=== PATIENT | male | born 1975 | race African-American/Black ===

== ENCOUNTER 2017-05-01 11:48 | Emergency (ER) | payer BC ==
[~2017-05-01] VITALS: Ht 175.3 cm; Wt 81.6 kg
--- NOTE | 2017-05-01 12:28 | NUR ---
EKG DONE ORDERED BY .
--- NOTE | 2017-05-01 12:50 | NUR ---
PT IS SEEN AND EXAMINED BY MD. CHIEF C/O OF COUGHING WITH SOB AND CHEST COUGHS X 2 DAYS. AWAKE AND ORIENTEDX3. NO APPARENT RESPIRATORY DISTRESS NOTED AT THIS TIME. O2 SAT 100%
[2017-05-01] MEDS ORDERED: ALBUTEROL SULFATE 2.5 MG/ 0.5 ML NEBU NEB ONE (13:00)
[2017-05-01 13:20] LABS: CREATININE 1.2 mg/dL (0.6-1.3); POTASSIUM 4.3 mmol/L (3.5-5.1)
[2017-05-01] MEDS ORDERED: ALBUTEROL SULFATE 2.5 MG/ 0.5 ML NEBU ONE (13:26)
--- NOTE | 2017-05-01 13:47 | NUR ---
Patient discharged to home in stable conditon. Written and verbal after care instructions given. Patient verbalizes understanding of instructions.
== END 2017-05-01 13:49 | disposition home or self-care (01) ==
LOC: ER 11:50
DX: J06.9 Acute upper respiratory infection, unspecified (principal); E78.5 Hyperlipidemia, unspecified; Z88.1 Allergy status to other antibiotic agents
CPT/HCPCS: 36415; 71045; 93005; A4663

== ENCOUNTER 2017-05-04 23:58 | Emergency (ER) | payer BC ==
[~2017-05-04] VITALS: Ht 175.3 cm; Wt 81.6 kg
[2017-05-05] MEDS ORDERED: ANDROGEL 1.62% (00:12)
[2017-05-05] MEDS ORDERED: AZITHROMYCIN 250 MG TABLET (00:12)
[2017-05-05] MEDS ORDERED: PUMP (00:12)
[2017-05-05] MEDS ORDERED: LIVALO 1 MG (00:12)
[2017-05-05] MEDS ORDERED: predniSONE 10 MG TABLET PO ONE (01:00)
[2017-05-05] MEDS ORDERED: IPRATROPIUM BROMIDE 0.5 MG/2.5 ML NEBU NEB ONE (01:00)
[2017-05-05] MEDS ORDERED: ALBUTEROL SULFATE 2.5 MG/3 ML NEBU NEB ONE (01:00)
[2017-05-05] MEDS ORDERED: predniSONE 50 MG TABLET ONE (01:57)
[2017-05-05] MEDS ORDERED: predniSONE 10 MG TABLET ONE (01:57)
[2017-05-05] MEDS ORDERED: ALBUTEROL SULFATE 2.5 MG/3 ML NEBU ONE (02:01)
[2017-05-05] MEDS ORDERED: IPRATROPIUM BROMIDE 0.5 MG/2.5 ML NEBU ONE (02:02)
--- NOTE | 2017-05-05 03:00 | NUR ---
Patient discharged to home in stable conditon, in no respiratory distress. respirations even and unlabored. Written and verbal after care instructions given with rx and work note. Patient verbalizes understanding of instructions.
== END 2017-05-05 03:15 | disposition home or self-care (01) ==
LOC: ER 23:59
DX: J45.909 Unspecified asthma, uncomplicated (principal); E78.5 Hyperlipidemia, unspecified; Z88.1 Allergy status to other antibiotic agents
CPT/HCPCS: A4663; J3590; J7512

== ENCOUNTER 2017-06-30 22:49 | Emergency (ER) | payer BC ==
[~2017-06-30] VITALS: Ht 175.3 cm; Wt 81.6 kg
[~2017-06-30 22:49] MED LIST: ANDROGEL 1.62%; AZITHROMYCIN 250 MG TABLET; LIVALO 1 MG; PUMP
[2017-07-01] MEDS ORDERED: PENICILLIN G BENZATHINE 2.4 MMU/4 ML DISP.SYRIN IM ONE ×2 (00:10)
[2017-07-01 00:27] VITALS: BP 138/85
== END 2017-07-01 00:27 | disposition home or self-care (01) ==
LOC: ER 22:50
DX: A51.49 Other secondary syphilitic conditions (principal); E78.5 Hyperlipidemia, unspecified; Z88.1 Allergy status to other antibiotic agents; Z79.2 Long term (current) use of antibiotics; Z79.899 Other long term (current) drug therapy
CPT/HCPCS: A4663

== ENCOUNTER 2018-01-14 10:08 | Emergency (ER) | payer BC ==
[~2018-01-14] VITALS: Ht 175.3 cm; Wt 81.6 kg
--- NOTE | 2018-01-14 10:12 | NUR ---
Patient came to room ambulating with steady gait. Well groamed and clean. Complains of abdominal pain.
[2018-01-14] MEDS ORDERED: IV NORMAL SALINE 1000 ML BAG IV ONE (10:30)
[2018-01-14 10:31] LABS: BASOPHILS % (AUTO) 0.5 % (0.0-2.0); EOSINOPHILS # (AUTO) 0.1 K/uL (0.0-0.7); EOSINOPHILS % (AUTO) 1.3 % (0.0-7.0); HEMATOCRIT 41.8 % (36.7-47.1); HEMOGLOBIN 13.9 g/dL (12.5-16.3); LYMPHOCYTES # (AUTO) 1.5 K/uL (20.0-40.0); LYMPHOCYTES % (AUTO) 17.4 % (20.5-51.5); MEAN CORPUSCULAR HEMOGLOBIN 28.3 uug (23.8-33.4); MEAN CORPUSCULAR HGB CONC 33 g/dL (32.5-36.3); MONOCYTES # (AUTO) 0.9 K/uL (2.0-10.0); MONOCYTES % (AUTO) 10.3 % (0.0-11.0); NEUTROPHILS # (AUTO) 6.1 K/uL (1.8-8.9); NEUTROPHILS % (AUTO) 70.5 % (38.5-71.5); PLATELET COUNT (AUTO) 194 K/uL (152-348); RED BLOOD CELL COUNT(AUTO) 4.91 MIL/uL (4.06-5.63); WHITE BLOOD COUNT (AUTO) 8.6 K/uL (3.6-10.2)
--- NOTE | 2018-01-14 10:32 | NUR ---
Patient sent to CT on wheelchair.
[2018-01-14 10:35] LABS: POTASSIUM 3.9 mmol/L (3.5-5.1)
[2018-01-14 10:41] LABS: BILIRUBIN,DIRECT 0.1 mg/dL (0.0-0.2); BILIRUBIN,TOTAL 0.7 mg/dL (0.2-1.0); TOTAL PROTEIN, SERUM 7.7 g/dL (6.4-8.2)
--- NOTE | 2018-01-14 10:46 | NUR ---
Patient returned from CT on wheelchair. No sign of respiratory distress.
--- NOTE | 2018-01-14 11:12 | NUR ---
Lab and CT results reviewed.
[2018-01-14] MEDS ORDERED: PIPERACILLIN SODIUM/TAZOBACTAM 3.375 G in IV DEXTROSE 5% 50 ML IV ONE (11:15)
[2018-01-14] MEDS ORDERED: ONDANSETRON 4 MG/2 ML VIAL IV ONE (11:15)
[2018-01-14] MEDS ORDERED: MORPHINE SULFATE 2 MG/1 ML DISP.SYRIN IV ONE (11:15)
[2018-01-14] MEDS ORDERED: MORPHINE SULFATE 4 MG/1 ML DISP.SYRIN ONE (11:17)
[2018-01-14] MEDS ORDERED: ONDANSETRON 4 MG/2 ML VIAL ONE (11:17)
[2018-01-14] MEDS ORDERED: PIPERACILLIN SODIUM/TAZO 3.375 GM VIAL ONE (11:18)
[2018-01-14] MEDS ORDERED: PIPERACILLIN/TAZOBACTAM/D5W 50 ML IV ONE (11:20)
--- NOTE | 2018-01-14 11:35 | NUR ---
patient lying in bed with no sign of respiratory distress. Medicated for complaint of pain 09/06 with morphine.
[2018-01-14 12:14] VITALS: BP 125/86
--- NOTE | 2018-01-14 12:15 | NUR ---
Patient discharged ambulating with stable gait. Patient says he will be picked up by [employer]. Patient given printed after care material, verbalizes understanding. Patient given prescription for Levaquin, Flagyl and [place] PO meds. IV removed with intact tips. Patient in stable condtion.
[2018-01-14 14:18] LABS: *BILIRUBIN,URIN NEGATIVE (NEGATIVE); *BLOOD, URINE NEGATIVE (NEGATIVE); *CLARITY,URINE CLEAR (CLEAR); *COLOR,URINE YELLOW (YELLOW); *KETONES,URINE NEGATIVE (NEGATIVE); *PROTEIN,URINE NEGATIVE (NEGATIVE); *UROBILINOGEN,URINE 0.2 E.U./dl (NORMAL); LEUKOCYTE ESTERASE ,URINE NEGATIVE (NEGATIVE); NITRITE, URINE NEGATIVE (NEGATIVE); PH,URINE 5.5 (5.0-8.0); UGLUCOSE NEGATIVE (NEGATIVE)
[2018-01-14 14:23] LABS: MUCUS,URINE MANY /LPF (0-FEW); SQUAMOUS EPITHELIAL CELL,UR FEW /HPF (NONE SEEN); WBC,URINE 0-3 /HPF (0-3)
== END 2018-01-14 12:19 | disposition home or self-care (01) ==
LOC: ER 10:08
DX: K57.92 Diverticulitis of intestine, part unspecified, without perforation or abscess without bleeding (principal); E78.5 Hyperlipidemia, unspecified; Z88.1 Allergy status to other antibiotic agents
CPT/HCPCS: 36415; 74176; 80048; 80076; 81001; 83690; 85025; 96365; 96375; 99285; A4663; J2270; J2405; J2543; J7030

== ENCOUNTER 2018-06-11 12:22 | Emergency (ER) | payer BC ==
[~2018-06-11] VITALS: Ht 175.3 cm; Wt 83.9 kg
--- NOTE | 2018-06-11 12:45 | NUR ---
HARRIET GOINS AT BEDSIDE FOR MSE.
--- NOTE | 2018-06-11 12:59 | NUR ---
Patient discharged to home in stable conditon. Written and verbal after care instructions given. Patient verbalizes understanding of instructions. ALL BELONGINGS W/ PT. PT SELF-AMBULATED W/O DIFFICULTY.
[2018-06-11 13:00] VITALS: BP 106/66
== END 2018-06-11 13:00 | disposition home or self-care (01) ==
LOC: ER 12:22
DX: J22 Unspecified acute lower respiratory infection (principal); E78.5 Hyperlipidemia, unspecified; Z88.1 Allergy status to other antibiotic agents
CPT/HCPCS: 71045; A4663

== ENCOUNTER 2018-08-15 10:02 | Emergency (ER) | payer BC ==
[~2018-08-15] VITALS: Ht 177.8 cm; Wt 90.7 kg
[2018-08-15] MEDS ORDERED: DEXAMETHASONE SOD PHOSPHATE 4 MG INJ IM ONE (11:15)
[2018-08-15] MEDS ORDERED: DEXAMETHASONE SOD PHOSPHATE 10 MG INJ ONE (11:25)
[2018-08-15 11:27] VITALS: BP 128/78
== END 2018-08-15 11:31 | disposition home or self-care (01) ==
LOC: ER 10:02
DX: J02.0 Streptococcal pharyngitis (principal); R51 Headache; J45.909 Unspecified asthma, uncomplicated; E78.5 Hyperlipidemia, unspecified; Z88.1 Allergy status to other antibiotic agents
CPT/HCPCS: 36415; 86403; 96372; 99283; J1100; A4663

== ENCOUNTER 2019-04-30 16:10 | Emergency (ER) | payer BC ==
[~2019-04-30] VITALS: Ht 175.3 cm; Wt 83.9 kg
[2019-04-30] MEDS ORDERED: TYLENOL PO (16:25)
[2019-04-30] MEDS ORDERED: CEFTRIAXONE 1 G VIAL ONE (16:35)
[2019-04-30] MEDS ORDERED: LIDOCAINE HCL 1% 20 ML VIAL ONE (16:35)
--- NOTE | 2019-04-30 16:44 | NUR ---
Patient discharged to home in stable conditon. Written and verbal after care instructions given. Patient verbalizes understanding of instructions. Patient ambulated with stable gait.
[2019-04-30 16:45] VITALS: BP 148/69
[2019-04-30] MEDS ORDERED: CEFTRIAXONE 1 G VIAL IM ONE (16:45)
== END 2019-04-30 16:45 | disposition home or self-care (01) ==
LOC: ER 16:11
DX: B34.9 Viral infection, unspecified (principal); F10.10 Alcohol abuse, uncomplicated; F12.10 Cannabis abuse, uncomplicated; E78.5 Hyperlipidemia, unspecified; J45.909 Unspecified asthma, uncomplicated; Z88.1 Allergy status to other antibiotic agents; Z88.8 Allergy status to other drugs, medicaments and biological substances
CPT/HCPCS: 99283; J0696; J3490; A4663

== ENCOUNTER 2020-06-08 10:42 | Emergency (ER) | payer BC ==
[~2020-06-08] VITALS: Ht 175.3 cm; Wt 83.9 kg
[~2020-06-08 10:42] MED LIST changes: -ANDROGEL 1.62%; -AZITHROMYCIN 250 MG TABLET; -LIVALO 1 MG; -PUMP; +TYLENOL PO
[2020-06-08] MEDS ORDERED: DOXY100T2 PO (11:04)
--- NOTE | 2020-06-08 11:11 | NUR ---
Patient discharged to home in stable condition. Written and verbal after care instructions given. Patient verbalizes understanding of instructions. Stressed follow up or return to ER for worsening s/s.
[2020-06-08] MEDS ORDERED: DOXYCYCLINE HYCLATE 100 MG TABLET ONE (11:12)
[2020-06-08] MEDS ORDERED: DOXYCYCLINE HYCLATE 100 MG TABLET PO ONE (11:15)
== END 2020-06-08 11:11 | disposition home or self-care (01) ==
LOC: ER 10:42
DX: A56.8 Sexually transmitted chlamydial infection of other sites (principal); E78.5 Hyperlipidemia, unspecified; Z88.1 Allergy status to other antibiotic agents; F12.20 Cannabis dependence, uncomplicated
CPT/HCPCS: A4663

== ENCOUNTER 2020-09-30 22:50 | Emergency (ER) | payer BC, OTHER ==
[~2020-09-30] VITALS: Ht 177.8 cm; Wt 88.5 kg
[~2020-09-30 22:50] MED LIST changes: +DOXY100T2 PO
--- NOTE | 2020-09-30 23:00 | NUR ---
Dr. Burns at bedside for MSE.
[2020-09-30] MEDS ORDERED: IBUPROFEN 800 MG TABLET ONE (23:24)
[2020-09-30] MEDS ORDERED: NAPR-1164 PO (23:30)
[2020-09-30] MEDS ORDERED: CYCL5TAB PO (23:30)
[2020-09-30] MEDS ORDERED: IBUPROFEN 800 MG TABLET PO ONE (23:30)
[2020-09-30 23:44] LABS: MEAN CORPUSCULAR HEMOGLOBIN 27.3 uug (23.8-33.4); MEAN CORPUSCULAR VOLUME 83.9 fL (73.0-96.2); PLATELET COUNT (AUTO) 256 K/uL (152-348)
[2020-09-30 23:55] LABS: CREATININE 1.2 mg/dL (0.6-1.3); POTASSIUM 3.8 mmol/L (3.5-5.1)
--- NOTE | 2020-10-01 00:16 | NUR ---
Patient discharged to home in stable condition. Written and verbal after care instructions given. Patient verbalizes understanding of instructions. Stressed follow up or return to ER for worsening s/s. Patient out of ER with steady gait, no acute signs of distress, VSS, all belongings taken.
[2020-10-01 00:19] VITALS: BP 148/91
== END 2020-10-01 00:19 | disposition home or self-care (01) ==
LOC: ER 22:51
DX: M54.2 Cervicalgia (principal); E78.5 Hyperlipidemia, unspecified; J45.909 Unspecified asthma, uncomplicated; Z88.1 Allergy status to other antibiotic agents; Z91.013 Allergy to seafood; I44.0 Atrioventricular block, first degree
CPT/HCPCS: 36415; 70030-TC; 85025; 93005; A4663

== ENCOUNTER 2021-01-07 23:44 | Emergency (ER) | payer BC, OTHER ==
[~2021-01-07] VITALS: Ht 177.8 cm; Wt 88.5 kg
[~2021-01-07 23:44] MED LIST changes: +CYCL5TAB PO; +NAPR-1164 PO
--- NOTE | 2021-01-08 00:15 | NUR ---
Pt brought back to [facility] by applications sales representative Adrian. EDMD at bedside for eval.
--- NOTE | 2021-01-08 00:20 | NUR ---
Pt swabbed for rapid strep per EDMD Dr. Cobian. Specimen collected without difficulty, pt tolerated well and sent to lab. Pt awaiting results
--- NOTE | 2021-01-08 00:27 | NUR ---
EDMD Dr. Cobian ordered some Pepcid 20mg.
[2021-01-08] MEDS ORDERED: DICYCLOMINE HCL LIQ 10 MG/5 ML UDC PO ONE (00:30)
[2021-01-08] MEDS ORDERED: MAG HYDROX/AL HYDROX/SIMETH 30 ML LIQUID UDC PO ONE (00:30)
[2021-01-08] MEDS ORDERED: LIDOCAINE VISCUS 2% 15 ML UDC MM ONE (00:30)
[2021-01-08] MEDS ORDERED: FAMOTIDINE 20 MG TABLET PO ONE (00:30)
[2021-01-08] MEDS ORDERED: PANTOPRAZOLE SODIUM 40 MG TABLET.DR PO ONE (00:30)
[2021-01-08] MEDS ORDERED: PENICILLIN G BENZATHINE 2.4 MMU/4 ML DISP.SYRIN IM ONE ×2 (00:30→00:39)
--- NOTE | 2021-01-08 00:35 | NUR ---
GI cocktail mixxed and given to pt with pepcid, Pt took GI cocktail in one shot without difficulty. Also, 2ml penicilin shot given in Rt glute without difficulty. Pt tolerated well, with no signs of reaction and no complaints of pain, nausea or discomfort.
[2021-01-08] MEDS ORDERED: DICYCLOMINE HCL LIQ 10 MG/5 ML UDC ONE (00:40)
[2021-01-08] MEDS ORDERED: LIDOCAINE VISCUS 2% 15 ML UDC ONE (00:40)
[2021-01-08] MEDS ORDERED: LANS30CA56 PO (00:41)
[2021-01-08] MEDS ORDERED: FAMOTIDINE 20 MG TABLET ONE (00:42)
[2021-01-08] MEDS ORDERED: MAGNESIUM HYDROXIDE 30 ML LIQUID UDC ONE (00:42)
--- NOTE | 2021-01-08 00:45 | NUR ---
EDMD at pt bedside discussing dispo with pt. Discharge instructions given to pt along with medication info. Pt confirms understanding of aftercare instructions. Pt has good color, temp and appearance with upbeat jovial mood. VSS, PE WNL, lungs clear, oxygenating and perfusing well. Denies any pain, nausea or discomfort. No s/sx of distress present.
[2021-01-08 01:00] VITALS: BP 128/88
== END 2021-01-08 00:45 | disposition home or self-care (01) ==
LOC: ER 23:46
DX: K21.9 Gastro-esophageal reflux disease without esophagitis (principal); J02.9 Acute pharyngitis, unspecified; Z88.1 Allergy status to other antibiotic agents; Z91.013 Allergy to seafood; E78.5 Hyperlipidemia, unspecified; J45.909 Unspecified asthma, uncomplicated; Z86.19 Personal history of other infectious and parasitic diseases
CPT/HCPCS: 86403; J0561

== ENCOUNTER 2023-03-15 00:29 | Emergency (ER) | payer BC, OTHER ==
[~2023-03-15] VITALS: Ht 177.8 cm; Wt 90.7 kg
[~2023-03-15 00:29] MED LIST changes: +LANS30CA56 PO
[2023-03-15] MEDS ORDERED: ACETAMINOPHEN ES 500 MG TABLET PO ONE (01:15)
[2023-03-15] MEDS ORDERED: GUAIFENESIN/DEXTROMETHORPHAN 5 ML UDC PO ONE (01:15)
[2023-03-15] MEDS ORDERED: GUAIFENESIN/DEXTROMETHORPHAN 5 ML UDC ONE (01:16)
[2023-03-15] MEDS ORDERED: ACETAMINOPHEN ES 500 MG TABLET ONE (01:16)
[2023-03-15] MEDS ORDERED: predniSONE 50 MG TABLET ONE (02:07)
[2023-03-15] MEDS ORDERED: PRED20TA PO (02:07)
[2023-03-15] MEDS ORDERED: ONDANSETRON ODT 4 MG TAB.RAPDIS ONE (02:11)
[2023-03-15 02:15] VITALS: BP 141/91; O2SAT 97
[2023-03-15] MEDS ORDERED: predniSONE 50 MG TABLET PO ONE (02:15)
[2023-03-15] MEDS ORDERED: ONDANSETRON ODT 4 MG TAB.RAPDIS SL ONE (02:15)
== END 2023-03-15 02:15 | disposition home or self-care (01) ==
LOC: ER 00:31
DX: J40 Bronchitis, not specified as acute or chronic (principal); J02.9 Acute pharyngitis, unspecified; R07.89 Other chest pain; E78.5 Hyperlipidemia, unspecified; Z88.1 Allergy status to other antibiotic agents; Z91.013 Allergy to seafood; Z79.2 Long term (current) use of antibiotics; Z79.899 Other long term (current) drug therapy; Z20.822 Contact with and (suspected) exposure to COVID-19
CPT/HCPCS: 99284; 71045; 87426; J7512; A9150; Q0162